=== PATIENT | female | born 1960 | race Caucasian/White ===

== ENCOUNTER → 2016-05-29 | Outpatient (CLI) | payer BC ==
--- NOTE | 2016-05-29 08:30 | Diagnostic Imaging Report ---
PROCEDURE: US Gallbladder. TECHNIQUE: Multiple real-time grayscale images were obtained over the right upper quadrant in various projections. INDICATION: Pulsatile abdominal mass, abdominal pain. FINDINGS: The visualized portion of the pancreas appears unremarkable. The liver demonstrates no focal mass. There is hepatopedal flow in the portal vein. The gallbladder demonstrates a hyperechoic focus seen in the neck region with no shadowing that appear adherent to the wall suggestive of a polyp measuring 6 mm in size. There is no gallbladder wall thickening or pericholecystic fluid. The CBD is mildly dilated at 0.8 CM in caliber. The right kidney is 9.9 CM in length with no hydronephrosis or focal lesion. There is no fluid collection in the upright abdomen. Sonographic Torres sign is reportedly negative. IMPRESSION: 1. Mild dilatation of the CBD with no obvious intrahepatic biliary dilatation. Correlate clinically and consider MRCP evaluation. 2. A 6 mm gallbladder polyp Dictated by: Dictated on workstation # [id number]
--- NOTE | 2016-05-29 09:47 | Diagnostic Imaging Report ---
Ultrasound of the aorta. INDICATION: Pulsatile abdominal mass. FINDINGS: The abdominal aorta demonstrate caliber of up to 1.8 CM, normal. There is minimal intimal plaque seen. The right and left common iliac arteries are up to 1.1 CM in caliber, normal. There is color-flow demonstrated. IMPRESSION: No evidence of aneurysm. Dictated by: Dictated on workstation # [id number]
== END ==
LOC: RAD 07:00
PROVIDERS: ATTEND Nurse Practitioner Family
DX: R19.01 Right upper quadrant abdominal swelling, mass and lump (principal); K82.4 Cholesterolosis of gallbladder
CPT/HCPCS: 76705; 76775

== ENCOUNTER → 2017-02-16 | Outpatient (CLI) | payer BC ==
--- NOTE | 2017-02-16 09:53 | Diagnostic Imaging Report ---
INDICATION: Screening. COMPARISON: 01/17/2016, 08/14/2013, and 09/08/2010. TECHNIQUE: Screening digital mammography was performed bilaterally with a Computer Aided Detection (CAD) system. FINDINGS: There is a moderate amount of residual fibroglandular tissue bilaterally. There is a surgical clip in the right breast. There are a few benign type calcifications. There is no dominant mass, spiculated lesion, or suspicious calcification identified. IMPRESSION: Benign findings. ACR BI-RADS Category 2: Benign findings. Result letter will be mailed to the patient. Note: At least 10% of breast cancer is not imaged by mammography. Dictated by: Dictated on workstation # [id number]
== END ==
LOC: RAD 07:18
PROVIDERS: ATTEND Nurse Practitioner Family
DX: Z12.31 Encounter for screening mammogram for malignant neoplasm of breast (principal); Z98.82 Breast implant status
CPT/HCPCS: 77067

== ENCOUNTER → 2020-03-01 | Outpatient (CLI) | payer BC ==
--- NOTE | 2020-03-01 09:14 | Diagnostic Imaging Report ---
Digital mammogram. Indication: Bilateral screening This study was compared to the prior exams of 02/16/2017, 01/17/2016 and 08/14/2013. At this time there are no current complaints. The current study was also evaluated with a Computer Aided Detection (CAD) system. FINDINGS: The fibroglandular tissue in both breasts is dense. This does limit the sensitivity of this exam. Overall, there does not appear to have been any significant change when compared to the prior study. No primary or secondary sign of malignancy is noted. The stereotactic clip in the right breast seen previously is again evident IMPRESSION: 1. There is no radiographic evidence for malignancy. 2. The patient should have her annual bilateral screening mammogram on schedule in February 2021. ACR BI-RADS Category 1: Negative. Result letter will be mailed to the patient. Note: At least 10% of breast cancer is not imaged by mammography. Dictated by: Dictated on workstation # [id number]
== END ==
LOC: RAD 08:45
PROVIDERS: ATTEND Nurse Practitioner Family
DX: Z12.31 Encounter for screening mammogram for malignant neoplasm of breast (principal)
CPT/HCPCS: 77063; 77067

== ENCOUNTER → 2022-03-16 | Outpatient (CLI) | payer BC ==
--- NOTE | 2022-03-16 09:49 | Diagnostic Imaging Report ---
INDICATION: Routine screening. COMPARISON: 03/01/2020 and 02/16/2017. TECHNIQUE: 2D and 3D bilateral screening mammography was performed with CAD. FINDINGS: Both breasts are heterogeneously dense, limiting the sensitivity of mammography. A stereotactic marker clip in the right breast is again noted. No new mass or malignant-appearing microcalcifications are seen. The axillae are unremarkable. IMPRESSION: No mammographic features suspicious for malignancy are identified. ACR BI-RADS Category 2: Benign findings. Result letter will be mailed to the patient. Note: At least 10% of breast cancer is not imaged by mammography. Dictated by: Dictated on workstation # [id number]
== END ==
LOC: RAD 07:21
PROVIDERS: ATTEND Nurse Practitioner Family
DX: Z12.31 Encounter for screening mammogram for malignant neoplasm of breast (principal)
CPT/HCPCS: 77063; 77067